=== PATIENT | female | born 1945 | race Caucasian/White ===

== ENCOUNTER → 2024-09-10 | Outpatient (CLI) | payer MEDICARE, BC, SELFPAY ==
[2024-09-10 12:02] LABS: Basophils % (Auto) 1 % (0-2.5); Eosinophils # (Auto) 0.2 Thou/mm3 (0.0-0.5); Eosinophils % (Auto) 3 % (0-10); Hemoglobin 11.9 g/dL (12.0-16.0); Immature Granulocytes % (Auto) 0 % (0-0); Immature Granulocytes Auto 0.02 Thou/mm3 (0.00-0.00); Lymphocytes # (Auto) 1.6 Thou/mm3 (1.0-4.8); Lymphocytes % (Auto) 19 % (10-50); Mean Corpuscular HGB Conc 30.5 g/dl (31.0-37.0); Mean Corpuscular Hemoglobin 28.2 pg (25.0-35.0); Mean Corpuscular Volume 92 fL (80-100); Monocytes # (Auto) 0.6 Thou/mm3 (0.0-0.8); Monocytes % (Auto) 7 % (0-12); Neutrophils # (Auto) 5.8 Thou/mm3 (1.8-7.7); Neutrophils % (Auto) 71 % (37-80); Nucleated Red Blood Cell % 0 /100 WBC (0); Platelet Count 324 Thou/mm3 (140-440); RDW Standard Deviation 43.7 fL (36.4-46.3); Red Blood Count 4.22 Miln/mm3 (4.00-5.20); White Blood Count 8.2 Thou/mm3 (3.6-11.0)
[2024-09-10 12:11] LABS: Glucose Estimated Average 103 mg/dL (80-131); Hemoglobin A1C 5.2 % Hgb (4.8-6.0)
[2024-09-10 12:15] LABS: Alanine Aminotransferase 12 U/L (10-49); Albumin, Serum 4.3 gm/dL (3.4-4.8); Albumin/Globulin Ratio 1.6 (1.2-2.2); Alkaline Phosphatase 151 U/L (46-116); Anion Gap 5 (7-16); BUN/Creatinine Ratio 18 Ratio (12-20); Bilirubin,Total 0.2 mg/dL (0.3-1.2); Blood Urea Nitrogen 16 mg/dL (9-23); Calcium 9.6 mg/dL (8.3-10.6); Calcium (Corrected) 9.6 mg/dL (8.5-10.1); Cardiac Risk Estimate 3.2 RATIO (3.7-5.6); Chloride 103 mMol/L (98-107); Cholesterol 198 mg/dL (132-200); Creatinine (Component) 0.9 mg/dL (0.6-1.3); Globulin 2.7 gm/dL (2.3-3.5); Glucose 83 mg/dL (74-106); HDL Cholesterol 61 mg/dL (40-60); LDL Cholesterol,Calculated 109 mg/dL (0-130); Osmolality,Calculated 277 (275-295); Potassium 4.5 mMol/L (3.4-5.1); Sodium 139 mMol/L (136-145); Triglycerides 141 mg/dL (30-150); eGFR > 60 See Note
[2024-09-10 12:30] LABS: Aspartate Amino Transferase 17 U/L (0-34); Total Iron Binding Capacity 217 mcg/dL (250-425)
[2024-09-10 12:40] LABS: Iron 40 mcg/dL (50-170); Percent Iron Saturation 18 % (20-55); Unsaturated Iron Binding 177 (225-295)
== END | disposition home or self-care (01) ==
LOC: COPL 10:53
PROVIDERS: PCP Specialist; Referring Provider Specialist; Visit Provider Specialist
DX: E11.65 Type 2 diabetes mellitus with hyperglycemia (principal); E61.1 Iron deficiency
CPT/HCPCS: 36415; 80053; 80061; 83036; 83540; 83550; 85025

== ENCOUNTER → 2024-09-24 | Outpatient (CLI) | payer MEDICARE, BC, SELFPAY ==
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
== END | disposition home or self-care (01) ==
LOC: CDIM 10:20
PROVIDERS: PCP Specialist; Referring Provider Specialist; Visit Provider Specialist
DX: M51.34 Other intervertebral disc degeneration, thoracic region (principal); M85.88 Other specified disorders of bone density and structure, other site; S19.9XXS Unspecified injury of neck, sequela; V89.2XXS Person injured in unspecified motor-vehicle accident, traffic, sequela
CPT/HCPCS: 72040; 72072; 72100

== ENCOUNTER 2024-11-13 15:21 | Emergency (ER) | payer MEDICARE, BC, SELFPAY ==
[2024-11-13] VITALS (7 sets, daily range): BP systolic 140–169; BP diastolic 67–81; PULSE 66–79; RESP 12–20; TEMP 36.6–36.8; O2SAT 22–98; BMI 21.9
--- NOTE | 2024-11-13 15:42 | PD.EDHIP ---
Lower Extremity Injury RME/HPI General Chief Complaint: Hip Injury/Pain Stated Complaint: HIP DISLOCATION Time Seen by Provider: 11/13/24 15:42 Arrival date/time: 11/13/24 15:21 RME / HPI RME / HPI Narrative: DR. MAYA MAIN ED EVALUATION: 79 year old female presents to the Emergency Department [facility] with complaint of right hip dislocation, she states it popped out. She was bending over planting a succulent and she heard a pop. She states the right hip pops out occasionally. Last oral intake was about 2 hours ago at about 2 PM, probably longer than that she states she skipped lunch and has only breakfast. PMHx: Hypothyroidism and arthritis. 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 Rebolledo; denies accident/ trauma. Social Hx: No tobacco, alcohol, or substance use. Related Data Home Medications ?Medication ?Instructions ?Recorded ?Confirmed hydrocodone 7.5 mg-acetaminophen 1 tab PO TID 05/29/20 01/26/24 325 mg tablet (Coy) Held on 01/26/24. Instructions: Resume on 01/27/24. levothyroxine 75 mcg tablet 75 mcg PO QDAY 05/29/20 01/26/24 bupropion HCl 300 mg 24 hr tablet, 300 mg PO DAILY 01/26/24 01/26/24 extended release [id number]-[id number] 1 cap PO TID PRN Headache 01/26/24 01/26/24 50 mg-300 mg-40 mg capsule clonazepam 1 mg tablet 0.5 mg PO HS 01/26/24 01/26/24 Held on 01/26/24. Instructions: Resume on 01/27/24. gabapentin 300 mg capsule 600 mg PO TID 01/26/24 01/26/24 Held on 01/26/24. Instructions: Resume on 01/27/24. Allergies Allergy/AdvReac Type Severity Reaction Status Date / Time morphine AdvReac Severe Hypotension Verified 11/13/24 15:29 Review of Systems Review of Systems Systems Reviewed: All systems reviewed, normal except as documented Narrative Review of Systems: GEN: No fever, no chills, no weight loss EYES: No discharge, no visual changes, no pain HEENT: No ear pain, no congestion, no sore throat PULM: No shortness of breath, no cough, no congestion CV: No chest pain, no dyspnea on exertion, no palpitations GI: No nausea, no vomiting, no diarrhea, no pain, no constipation : No frequency, no urgency and no dysuria MUSC/SKEL: + right hip pain/ popped out (see HPI), no back pain SKIN: No rash PSYCH: No hallucinations, no depression HEME/LYMPH: No easy bleeding or bruising tendencies NEURO: No weakness, no headache Past Medical History Past Medical History NEUROLOGIC: Positive Neurological Disorders and Migraine GASTROINTESTINAL: Positive Gastrointestinal Disorders (Dysphagia), Hiatal Hernia, Gastroesophageal Reflux Disease and Obesity (HX) MUSCULOSKELETAL: Positive Musculoskeletal Disorders and Arthritis ENDOCRINE: Positive Endocrine Disorders, Diabetes Mellitus Type 2 (Diet controlled) and Hypothyroidism HEMATOLOGIC: Positive Anemia PSYCHO/SOCIAL: Positive Depression and Anxiety OTHER HISTORY: Positive Blood Transfusions, Chicken Pox, Measles, Mumps and Rubella (Cro[place] Measles); Negative Cancer Surgical History SURGICAL: Positive Abdominal Surgery (LAP BAND) and Hysterectomy Social History SMOKING STATUS: Never smoker SUBSTANCE USE: does not use ALCOHOL: Never ED Exam Narrative Physical exam: GENERAL APPEARANCE: AxOx4, generally well-appearing, no acute distress. HEENT: NC, AT. MMM. EOMI, clear conjunctiva, oropharynx clear. NECK: Supple without lymphadenopathy. No stiffness or restricted ROM. HEART: Normal rate and regular rhythm, normal S1/S1, no m/r/g LUNGS: CTAB, moving air well. No crackles or wheezes are heard. ABDOMEN: Soft, nontender, nondistended with good bowel sounds heard. BACK: No midline C/T/L spine pain or deformity, No CVAT, no obvious deformity. EXTREMITIES: Without cyanosis, clubbing or edema. MUSCULOSKELETAL: right hip limited ROM due to pain, right hip internally rotated; neurovascular intact distally; no chest tenderness NEUROLOGICAL: Grossly nonfocal. Alert and oriented, moving all 4 extremities. CN not formally tested but appear grossly intact. Observed to ambulate with normal gait. Skin: Warm and dry without any rash. Course Course Course Narrative: Patient tolerated procedural sedation and closed reduction of the right hip dislocation without complication. Postreduction x-ray shows adequate and normal alignment of the right hip prosthesis. Patient is neurovascularly intact distally of her right lower extremity pre and postreduction. Quality Measures none Orders Category Date Time Status XR hip RT 1V Stat Exams 11/13/24 16:49 Completed XR hip RT 1V Stat Exams 11/13/24 17:33 Taken HYDROmorphone INJ [Dilaudid Inj] Med 11/13/24 15:44 Discontinued 0.5 mg IVP X1 ONE Ketamine Inj Med 11/13/24 17:01 Discontinued 12.5 mg IVP X1 ONE Propofol Inj [Diprivan Inj] Med 11/13/24 17:01 Discontinued 15 mg IV X1 ONE Propofol Inj [Diprivan Inj] Med 11/13/24 17:37 Discontinued 20 mg IV X1 ONE Vital Signs Vital signs: Vital Signs Temperature 98.3 F 11/13/24 15:23 Pulse Rate 68 11/13/24 15:23 Respiratory Rate 16 11/13/24 15:23 Blood Pressure 169/73 H 11/13/24 15:23 Pulse Oximetry (%) 98 11/13/24 15:23 Oxygen Delivery Method Room Air 11/13/24 15:23 SpO2 98% on room air, patient is not hypoxic Procedures -ED Orthopedic Joint Reduction Joint #1: Time Out Performed: Yes Side: Right Joint Reduction Location: hip Analgesia: other (Ketamine 12.5 mg and Propofol 27.5 mg) Technique used: traction/counter-traction Post-reduction neuro exam: intact Post-reduction vascular: intact Post Reduction X-Ray Obtained: Yes Post Reduction X-Ray Results: reduced Patient Tolerated Procedure: well and no complications Procedural Sedation Indication: fracture/dislocation reduction Ketamine: IV IV Propofol dose (mg): 27.5 Patient Tolerated Procedure: well and no complications Complications: none Additional Comments: For right hip reduction Ketamine 12.5 mg and Propofol 27.5 mg Extremity Injury, Lower MDM Narrative MDM Narrative:: Ms. Amaral is an otherwise healthy female with clinically a right posterior hip dislocation which appears to be a minimal mechanism, bending over. There appears to have been no blunt trauma associated with this. Mechanism seems mostly consistent as she has had this happen several years ago in the past requiring procedural reduction. X-ray here did confirm a posterior dislocation of her right prosthesis. Patient underwent procedural sedation with Ketofol without sedation complication and adequate reduction of her hip dislocation. Patient awoke essentially pain-free, pleased with the final results. She is neurovascularly intact pre and post procedure. She is appropriate for outpatient follow-up. Carolina Deleon, am scribing for and in the presence of Dr. Maay. Patient data External records reviewed:: [facility] previous records (Reviewed last ED visit dated 01/03/24 , discharged with the following: Dislocated hip) and EMS form Clinical information provided by:: patient and EMS Social determinants that could affect healthcare access:: none Patient has the following chronic illnesses:: Hypothyroidism and arthritis. 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 Rebolledo; denies accident/ trauma. How is presenting disease/condition affected by chronic disease/condition?: exacerbated by Evaluation data The following diagnostics were reviewed and interpreted by me:: radiology exam(s) Lab and/or radiology exams considered but not ordered:: none Interpretation Summary: Procedure(s): XR hip RT 1V Accession Number(s): [id number] cc: Flavio Souza MD; Enrique Maya MD; Paresh Garrison MD~ Examination: AP right hip single view Technique: AP right hip portable single view Exam date and time: November 13, 2024 1646 hrs. Indications: Injury to the head today, hip pain Findings: Dislocation of the prosthetic femoral head inferiorly relative to the prosthetic acetabulum The film is severely obliqued Impression: Dislocation of the prosthetic femoral head No fracture noted Dictated By: Paresh Garrison MD Medications / Prescriptions Medications or Prescriptions considered but not ordered:: none Medication administrations:: Medication Administration History Discontinued Medications Hydromorphone HCl (Hydromorphone Inj 2 Mg/Ml Vial) 0.5 mg IVP X1 ONE Stop: 11/13/24 15:45 Last Admin: 11/13/24 15:49 Dose: 0.5 mg Documented By: MICHAEL Ketamine HCl (Ketamine 50 Mg/Ml Vial 10 Ml) 12.5 mg IVP X1 ONE Stop: 11/13/24 17:02 Last Admin: 11/13/24 17:20 Dose: 12.5 mg Documented By: MICHAEL Propofol (Propofol Inj 10 Mg/Ml Vial 20 Ml) 15 mg IV X1 ONE Stop: 11/13/24 17:02 Last Admin: 11/13/24 17:25 Dose: 15 mg Documented By: MICHAEL Propofol (Propofol Inj 10 Mg/Ml Vial 20 Ml) 20 mg IV X1 ONE Stop: 11/13/24 17:38 Last Admin: 11/13/24 17:24 Dose: 20 mg Documented By: MICHAEL see above if any Consultations Consultation(s) initiated? (list below): No Diagnosis Extremity Injury, Lower Differential Diagnosis: fracture of hip and other (hip dislocation, hip injury) Most likely diagnosis given after review of the tests above:: Closed posterior dislocation of right hip Admission Indicated Admission indicated?: not indicated Admission Request Was there a request for admission?: No Disposition Plan Disposition Plan: Discharge Discharge Attestation Discharge Attestation: The patient and all family members were given an opportunity to ask questions and understood the discharge instructions. Discharge instructions specifically effects, indications for sooner follow up or return to the emergency department, and the expected course of current diagnosis. Patient condition: Stable Discharge Plan Plan Patient Disposition: HOME (Self Care) Prescriptions/Referrals Prescriptions/Med Rec: No Action levothyroxine 75 mcg Tablet 75 mcg PO QDAY hydrocodone-acetaminophen [Coy] 7.5-325 mg Tablet 1 tab PO TID clonazepam 1 mg tablet 0.5 mg PO HS Patient Comments: TAKE 1 TABLET BY MOUTH TWICE A DAY NEEDED FOR SEVERE ANXIETY gabapentin 300 mg capsule 600 mg PO TID Patient Comments: TAKE 1 TO 2 CAPSULES BY MOUTH 3 TIMES A DAY bupropion HCl 300 mg tablet extended release 24 hr 300 mg PO DAILY Patient Comments: TAKE 1 TABLET BY MOUTH EVERY DAY [id number]-[id number]-[id number] 50-300-40 mg capsule 1 cap PO TID PRN (Reason: Headache) Patient Comments: TAKE 1 CAPSULE BY MOUTH EVERY 4 HOURS NEEDED FOR MIGRAINE FOR 30 DAYS Referrals: Flavio Souza MD [Primary Care Provider] - In 1 week [place] Rebolledo MD [Physician] - In 1 week Problem List Clinical Impression: Closed posterior dislocation of right hip Patient/Caregiver Discharge Instructions Education Materials: ED Hip Replace Dislocation Reduc Additional Instructions: Follow-up with the orthopedist Dr. Rebolledo within a week. Call his office first thing Friday morning to schedule your appointment. You can return to the emergency department sooner if symptoms worsen or if you notice any new or concerning issues. Print Language: Serbian Stand Alone Forms: Tammy Award Info., Patient Portal Info Letter
[2024-11-13] MEDS: HYDROmorphone INJ 2 MG/ML VIAL 0.5 MG IVP (15:49)
--- NOTE | 2024-11-13 16:01 | PC.NURSE ---
PATIENT BROUGHT IN BY EMS FOR PAIN TO RIGHT HIP. PATIENT STATES SHE WAS BENDING OVER AND STOOD UP AND FELT A POP IN HER HIP. PATIENT ARRIVED IN SUPINE POSITIONS WITH KNEE UP TO CHEST FOR POSITION OF COMFORT. DR MAYA AT BEDSIDE ATTEMPTING TO REPLACE HIP. PATIENT CONSENT FOR CLOSED REDUCTION OF THE RIGHT HIP SIGNED. MEDICATION GIVEN. PATIENT TOLERATING PAIN WELL.
--- NOTE | 2024-11-13 16:49 | XR_ITS ---
Examination: AP right hip single view Technique: AP right hip portable single view Exam date and time: November 13, 2024 1646 hrs. Indications: Injury to the head today, hip pain Findings: Dislocation of the prosthetic femoral head inferiorly relative to the prosthetic acetabulum The film is severely obliqued Impression: Dislocation of the prosthetic femoral head No fracture noted
--- NOTE | 2024-11-13 17:15 | PC.NURSE ---
DR. MAYA AT BEDSIDE TO PERFORM PROCEDURE. PATIENT TOLERATED WELL.
[2024-11-13] MEDS: KETAMINE 50 MG/ML VIAL 10 ML 12.5 MG IVP (17:20)
[2024-11-13] MEDS: PROPOFOL INJ 10 MG/ML VIAL 20 ML 20 MG IV (17:24)
[2024-11-13] MEDS: PROPOFOL INJ 10 MG/ML VIAL 20 ML 15 MG IV (17:25)
--- NOTE | 2024-11-13 17:33 | XR_ITS ---
Examination: Right hip AP single view Technique: AP right hip single view Exam date and time: November 13, 2024 1737 hrs. Indications: Right hip dislocation today post reduction Findings: Satisfactory reduction prosthetic femoral head dislocation No fracture noted Impression: Satisfactory reduction prosthetic hip dislocation
== END 2024-11-13 18:24 | disposition home or self-care (01) ==
PROVIDERS: Emergency Provider Emergency Medicine; PCP Specialist
DX: T84.020A Dislocation of internal right hip prosthesis, initial encounter (principal); Y79.2 Prosthetic and other implants, materials and accessory orthopedic devices associated with adverse incidents
CPT/HCPCS: 27257; 73501; 99285; J2704; J3490

== ENCOUNTER → 2025-02-10 | Outpatient (CLI) | payer MEDICARE, BC, SELFPAY ==
[2025-02-10 13:21] LABS: Glucose Estimated Average 103 mg/dL (80-131); Hemoglobin A1C 5.2 % Hgb (4.8-6.0)
[2025-02-10 13:27] LABS: Alanine Aminotransferase 12 U/L (10-49); Albumin/Globulin Ratio 1.7 (1.2-2.2); Alkaline Phosphatase 132 U/L (46-116); Anion Gap 10 (7-16); Aspartate Amino Transferase 22 U/L (0-34); BUN/Creatinine Ratio 18 Ratio (12-20); Bilirubin,Total 0.3 mg/dL (0.3-1.2); Blood Urea Nitrogen 18 mg/dL (9-23); Carbon Dioxide 30.1 mMol/L (20.0-31.0); Chloride 103 mMol/L (98-107); Cholesterol 192 mg/dL (132-200); Free T3 2.7 pg/mL (2.3-4.2); Free T4 (Free Thyroxine) 1.37 ng/dL (0.89-1.76); Globulin 2.4 gm/dL (2.3-3.5); Glucose 146 mg/dL (74-106); HDL Cholesterol 64 mg/dL (40-60); LDL Cholesterol,Calculated 104 mg/dL (0-130); Osmolality,Calculated 289 (275-295); Potassium 4.2 mMol/L (3.4-5.1); Sodium 143 mMol/L (136-145); Thyroid Stimulating Hormone 0.72 uIU/mL (0.55-4.78); Total Protein 6.4 gm/dL (5.7-8.2); Triglycerides 120 mg/dL (30-150); eGFR 57 See Note
[2025-02-10 13:33] LABS: Creatinine MALB Rnd Ur 33 mg/dL (30-125); Microalbumin, Random Urine < 3 mg/L (0-300)
== END | disposition home or self-care (01) ==
LOC: COPL 11:52
PROVIDERS: PCP Specialist; Referring Provider Specialist; Visit Provider Specialist
DX: E03.9 Hypothyroidism, unspecified (principal); E11.65 Type 2 diabetes mellitus with hyperglycemia; E78.2 Mixed hyperlipidemia
CPT/HCPCS: 36415; 80053; 80061; 82043; 82570; 83036; 84439; 84443; 84481

== ENCOUNTER → 2025-05-25 | Outpatient (CLI) | payer MEDICARE, BC, SELFPAY ==
[2025-05-25 13:10] LABS: Alanine Aminotransferase < 7 U/L (10-49); Albumin, Serum 4.2 gm/dL (3.4-4.8); Albumin/Globulin Ratio 1.5 (1.2-2.2); Alkaline Phosphatase 109 U/L (46-116); Anion Gap 10 (7-16); Aspartate Amino Transferase 21 U/L (0-34); BUN/Creatinine Ratio 14 Ratio (12-20); Bilirubin,Total 0.3 mg/dL (0.3-1.2); Blood Urea Nitrogen 13 mg/dL (9-23); Calcium 10.1 mg/dL (8.3-10.6); Calcium (Corrected) 10.1 mg/dL (8.5-10.1); Carbon Dioxide 30.4 mMol/L (20.0-31.0); Chloride 102 mMol/L (98-107); Creatinine (Component) 0.9 mg/dL (0.6-1.3); Globulin 2.8 gm/dL (2.3-3.5); Glucose 82 mg/dL (74-106); Osmolality,Calculated 282 (275-295); Potassium 4.4 mMol/L (3.4-5.1); Sodium 142 mMol/L (136-145); Total Protein 7.0 gm/dL (5.7-8.2); eGFR > 60 See Note
[2025-05-25 13:13] LABS: Glucose Estimated Average 108 mg/dL (80-131); Hemoglobin A1C 5.4 % Hgb (4.8-6.0)
[2025-05-25 13:22] LABS: Cholesterol 177 mg/dL (132-200); HDL Cholesterol 66 mg/dL (40-60); Triglycerides 64 mg/dL (30-150)
[2025-05-25 13:23] LABS: Cardiac Risk Estimate 2.7 RATIO (3.7-5.6); LDL Cholesterol,Calculated 98 mg/dL (0-130)
[2025-05-25 13:45] LABS: Creatinine MALB Rnd Ur 59 mg/dL (30-125); Microalbumin Creat Ratio 5 mg/gCrea (<30); Microalbumin, Random Urine 3 mg/L (0-300)
== END | disposition home or self-care (01) ==
LOC: COPL 11:43
PROVIDERS: PCP Specialist; Referring Provider Specialist; Visit Provider Specialist
DX: E11.69 Type 2 diabetes mellitus with other specified complication (principal)
CPT/HCPCS: 36415; 80053; 80061; 82043; 82570; 83036

== ENCOUNTER → 2025-08-24 | Outpatient (CLI) | payer MEDICARE, BC, SELFPAY ==
[2025-08-24 16:50] LABS: Amphetamine/Methamp Scrn,U Negative (Negative); Barbiturate Screen,Urine Positive (Negative); Benzodiazepines Screen,Urine Negative (Negative); Benzoylecgonine Screen, Ur Negative (Negative); Fentanyl Screen,Urine Negative (Negative); Opiate Screen,Urine Positive (Negative); THC Screen,Urine Negative (Negative)
== END | disposition home or self-care (01) ==
LOC: SLDO 14:07
PROVIDERS: PCP Specialist; Referring Provider Specialist; Visit Provider Specialist
DX: Z79.891 Long term (current) use of opiate analgesic (principal)
CPT/HCPCS: 80307